=== PATIENT | female | born 1950 | race Caucasian/White ===

== ENCOUNTER 2024-01-14 08:33 | Day surgery (SDC) | payer MEDICARE ==
[~2024-01-14] VITALS: Ht 165.1 cm; Wt 123.4 kg
[~2024-01-14 08:33] MED LIST: AMLO1TAB24 PO; AMLO1TAB25 PO; ATEN25TA PO; CALCIUM CALTRATE PO; JARD1TAB PO; LEVO100T5 PO; LISI40TA4 PO; LISI40TA52 PO; MEGE40TA18 PO; METF-838 PO; PERC5TAB12 PO; PHENYLEPHRINE 10% OPHTH SOL 5ML OD PRN; PRAV80TA2 PO; Pravastatin PO; VITA100067 PO
[2024-01-14] MEDS: OFLOXACIN 0.3 % (OCUFLOX) OPTH SOL 5ML OD ONE (09:57)
[2024-01-14] MEDS: PHENYLEPHRINE 2.5% OPHTH SOL 2ML OD SCH (09:58)
[2024-01-14] MEDS: LIDOCAINE 3.5 % 1ML OPHTH TOPICAL GEL OU ONE (09:58)
[2024-01-14] MEDS: ATROPINE SULFATE 1% OPHTH SOLN 2ML BTL OD SCH (09:58)
[2024-01-14] MEDS: TROPICAMIDE 1% OPHTH SOLN 15ML OD SCH (09:58)
[2024-01-14] MEDS ORDERED: MIDAZOLAM INJ 2MG/2ML VIAL As Ordered ONE (10:30)
[2024-01-14] MEDS ORDERED: fentaNYL 100 MCG/2 ML INJECTION As Ordered ONE (10:31)
[2024-01-14] MEDS: LIDOCAINE 1% SDV 5ML VIAL As Ordered ONE (10:44)
[2024-01-14] MEDS: BSS IRRIG/VANCO(10MG)/TOBRA(5MG)/EPINEPH(1:1000-0.5CC)500ML BAG-ORONLY As Ordered ONE (10:44)
[2024-01-14] MEDS: CEFUROXIME 1MG/0.1ML INTRACAMERAL INJ As Ordered ONE (10:44)
[2024-01-14 10:56] VITALS: BP 139/66; TEMP 96.8; O2SAT 97
== END 2024-01-14 10:56 | disposition home or self-care (01) ==
LOC: M SDC 08:33
PROVIDERS: ATTEND Ophthalmology
DX: H25.11 Age-related nuclear cataract, right eye (principal); E11.9 Type 2 diabetes mellitus without complications; I12.9 Hypertensive chronic kidney disease with stage 1 through stage 4 chronic kidney disease, or unspecified chronic kidney disease; E78.00 Pure hypercholesterolemia, unspecified; E03.9 Hypothyroidism, unspecified; M17.0 Bilateral primary osteoarthritis of knee; R06.83 Snoring; N18.30 Chronic kidney disease, stage 3 unspecified; Z79.899 Other long term (current) drug therapy; Z79.890 Hormone replacement therapy; Z79.84 Long term (current) use of oral hypoglycemic drugs
CPT/HCPCS: 66984; J0697; J2250; J3010; V2632

== ENCOUNTER 2024-01-21 07:41 | Day surgery (SDC) | payer MEDICARE ==
[~2024-01-21] VITALS: Ht 162.6 cm; Wt 123.4 kg
[~2024-01-21 07:41] MED LIST changes: +MIDAZOLAM INJ 2MG/2ML VIAL As Ordered ONE; -PHENYLEPHRINE 10% OPHTH SOL 5ML OD PRN; +PHENYLEPHRINE 10% OPHTH SOL 5ML OS PRN; +fentaNYL 100 MCG/2 ML INJECTION As Ordered ONE
[2024-01-21] MEDS: LIDOCAINE 3.5 % 1ML OPHTH TOPICAL GEL OU ONE (09:08)
[2024-01-21] MEDS: OFLOXACIN 0.3 % (OCUFLOX) OPTH SOL 5ML OS ONE (09:08)
[2024-01-21] MEDS: PHENYLEPHRINE 2.5% OPHTH SOL 2ML OS SCH (09:09)
[2024-01-21] MEDS: TROPICAMIDE 1% OPHTH SOLN 15ML OS SCH (09:09)
[2024-01-21] MEDS: ATROPINE SULFATE 1% OPHTH SOLN 2ML BTL OS SCH (09:09)
[2024-01-21] MEDS: LIDOCAINE 1% SDV 5ML VIAL As Ordered ONE (09:45)
[2024-01-21] MEDS: CEFUROXIME 1MG/0.1ML INTRACAMERAL INJ As Ordered ONE (09:45)
[2024-01-21] MEDS: BSS IRRIG/VANCO(10MG)/TOBRA(5MG)/EPINEPH(1:1000-0.5CC)500ML BAG-ORONLY As Ordered ONE (09:45)
[2024-01-21] MEDS: POVIDONE-IODINE 5% OPHTH PREP SOL 30ML As Ordered ONE (09:46)
[2024-01-21 09:57] VITALS: BP 137/97; TEMP 97; O2SAT 97
== END 2024-01-21 10:10 | disposition home or self-care (01) ==
LOC: M SDC 07:41
PROVIDERS: ATTEND Ophthalmology
DX: E11.36 Type 2 diabetes mellitus with diabetic cataract (principal); H25.12 Age-related nuclear cataract, left eye; I12.9 Hypertensive chronic kidney disease with stage 1 through stage 4 chronic kidney disease, or unspecified chronic kidney disease; E11.22 Type 2 diabetes mellitus with diabetic chronic kidney disease; E78.00 Pure hypercholesterolemia, unspecified; N18.30 Chronic kidney disease, stage 3 unspecified; E03.9 Hypothyroidism, unspecified; Z79.84 Long term (current) use of oral hypoglycemic drugs; Z79.899 Other long term (current) drug therapy; Z79.890 Hormone replacement therapy; Z79.85 Long-term (current) use of injectable non-insulin antidiabetic drugs; Z90.49 Acquired absence of other specified parts of digestive tract; Z90.710 Acquired absence of both cervix and uterus
CPT/HCPCS: 66984; J0697; J2250; J3010; V2632